=== PATIENT | male | born 1985 | race Two or more races ===

== ENCOUNTER 2020-06-05 01:53 | Inpatient (IN) | payer MEDICAID ==
[~2020-06-05] VITALS: Ht 177.8 cm; Wt 111.9 kg
[2020-06-05 02:42] LABS: Basophils # (auto) 0 10 ^3/uL (0-0.2); Basophils % (auto) 0.1 % (0.0-2.0); Eosinophils # (auto) 0 10 ^3/uL (0-0.8); Eosinophils % (auto) 0.2 % (0.0-7.0); Hematocrit 44.7 % (41.0-53.0); Hemoglobin 15.5 g/dL (13.5-17.5); Lymphocytes # (auto) 1.2 10 ^3/uL (0.4-5.4); Lymphocytes % (auto) 14.1 % (10.0-50.0); Mean Corpuscular Hemoglobin 28.5 pg (28.0-32.0); Mean Corpuscular Hgb Conc. 34.5 g/dL (32.0-36.0); Mean Corpuscular Volume 82.4 fL (80.0-100.0); Monocytes # (auto) 0.3 10 ^3/uL (0-1.3); Neutrophils % (auto) 81.6 % (37.0-80.0); Nucleated Red Blood Cells % 0.1 %; Platelet Count (auto) 323 10^3/uL (140-450); Red Blood Cells 5.43 10^6/uL (4.5-5.90); Red Cell Distribution Width 13.6 % (11.8-14.3); White Blood Cell 8.5 10^3/uL (4.4-10.8)
[2020-06-05 02:58] LABS: Alanine Aminotransferase 79 U/L (16-61); Albumin 2.9 g/dL (3.4-5.0); Anion Gap 8 (5-15); Aspartate Aminotransferase 50 U/L (15-37); BUN/Creatinine Ratio 14.4; Blood Urea Nitrogen 14 mg/dL (7-18); Calcium 8.3 mg/dL (8.5-10.1); Carbon Dioxide 27 mmol/L (21-32); Chloride 95 mmol/L (98-107); GFR African American 112 mL/min; GFR Non-African American 93 mL/min; Glucose 175 mg/dL (74-106); INR 1.02 (0.9-1.15); Partial Thromboplastin Time 27.3 sec (23.0-31.2); Sodium 130 mmol/L (136-145)
[2020-06-05 03:03] LABS: Alkaline Phosphatase 96 U/L (45-117); Bilirubin, Total 0.7 mg/dL (0.2-1.0); Total Protein 7.7 g/dL (6.4-8.2)
[2020-06-05] MEDS ORDERED: ERGOCALCIFEROL 50,000 UNIT(1.25MG) CAP PO SCH (07:00)
[2020-06-05] MEDS ORDERED: ASCORBIC ACID 500 MG TAB PO ONE (07:00)
[2020-06-05] MEDS ORDERED: cefTRIAXone 1GM/50ML D5W 50 ML IV ONE (07:00)
[2020-06-05] MEDS ORDERED: DOXYCYCLINE 100MG/250ML 250 ML IV ONE (07:00)
[2020-06-05] MEDS ORDERED: DexAMETHasone SOD PHOS 10MG/1ML VIAL INJ IV ONE (07:00)
[2020-06-05] MEDS ORDERED: ONDANSETRON HCL 4 MG/2 ML VIAL IV PRN (07:45)
[2020-06-05] MEDS ORDERED: HYDROcodone-ACET 5/325MG TAB PO PRN (07:45)
[2020-06-05] MEDS ORDERED: DOCUSATE SOD 100 MG CAP PO PRN (07:45)
[2020-06-05] MEDS ORDERED: NITROGLYCERIN 0.4 MG SL TAB SL PRN (07:45)
[2020-06-05] MEDS ORDERED: ACETAMINOPHEN 500 MG TAB PO PRN (07:45)
[2020-06-05] MEDS ORDERED: MORPHINE SULF INJ 2 MG/ML SYRINGE 1ML IV PRN (07:45)
[2020-06-05 09:20] VITALS: BP 114/74
[2020-06-05] MEDS: DOXYCYCLINE 100MG/250ML 250 ML IV SCH ×2 (10:00→22:00)
[2020-06-05] MEDS: MULTIPLE VITAMIN TAB PO SCH (10:00)
[2020-06-05] MEDS: DexAMETHasone SOD PHOS 10MG/1ML VIAL INJ IV SCH (10:00)
[2020-06-05] MEDS: ZINC SULFATE 220mg CAP or TAB PO SCH (10:00)
[2020-06-05] MEDS: ASCORBIC ACID 1,000 MG TAB PO SCH (10:00)
[2020-06-05] MEDS: ENOXAPARIN SOD 40 MG/0.4 ML SYRINGE SC SCH (10:00)
[2020-06-05] MEDS: CHOLECALCIFEROL (VITD3) 2,000 UNIT CAP PO SCH (10:00)
[2020-06-05] MEDS: BUDESONIDE (INHALATION) 180 MCG IH IN SCH ×3 (10:24→23:09)
[2020-06-05] MEDS ORDERED: AZIT250T9 PO (10:52)
[2020-06-05] MEDS ORDERED: DEXT1SYP6 PO (10:52)
[2020-06-05] MEDS ORDERED: HYDR12.56 PO (10:52)
[2020-06-05] MEDS ORDERED: AMLO5TAB15 PO (10:52)
[2020-06-05] MEDS ORDERED: ACET-1753 PO (10:52)
[2020-06-05] MEDS ORDERED: LISI40TA11 PO (10:52)
[2020-06-05] MEDS ORDERED: ATOR10TA52 PO (10:52)
[2020-06-05] MEDS ORDERED: ACET-6 PO (10:52)
[2020-06-05] MEDS ORDERED: METF-370 PO (10:52)
[2020-06-05] MEDS ORDERED: FUROSEMIDE 20 MG/2 ML VIAL IV ONE (11:15)
[2020-06-05] MEDS ORDERED: POTASSIUM CHL 10 Meq TABLET PO ONE (11:15)
[2020-06-05] MEDS ORDERED: DEXTROSE (50%) 50ML SYRG IV PRN (13:45)
[2020-06-05] MEDS: SODIUM CHLOR 0.9% PF (SALINE LOCK) 10ML VIAL/SYR IV SCH ×2 (14:00→22:00)
[2020-06-05] MEDS ORDERED: guaiFENesin-DM 100/10mg/5ml SYR PO PRN (14:00)
[2020-06-05] MEDS: ALBUTEROL SULF HFA 90MCG INH 200DOSE IN SCH ×3 (14:49→23:09)
[2020-06-05] MEDS: InsuLIN REG 1unit/0.01ml Soln (100units/ml) SC SCH ×2 (17:00→22:00)
[2020-06-05] MEDS ORDERED: REMDESIVIR 200 MG in NS 210ml LOADING DOSE ADULT IV ONE ×2 (17:00→18:30)
[2020-06-05] MEDS: ACCU-CHEK COMFORT CURVE STRIP VI SCH ×2 (17:00→22:00)
[2020-06-05 21:35] LABS: Urine Bacteria NONE SEEN /hpf (None Seen); Urine Blood Negative /uL (Negative); Urine Specific Gravity 1.011 (1.001-1.035); Urine WBC 1 /hpf (0 - 3)
[2020-06-06] MEDS: ALBUTEROL SULF HFA 90MCG INH 200DOSE IN SCH ×3 (06:00→22:00)
[2020-06-06] MEDS: SODIUM CHLOR 0.9% PF (SALINE LOCK) 10ML VIAL/SYR IV SCH ×2 (06:11→13:48)
[2020-06-06 06:39] VITALS: BP 123/70
[2020-06-06 06:56] VITALS: BP 118/66
[2020-06-06] MEDS: ACCU-CHEK COMFORT CURVE STRIP VI SCH ×4 (07:00→22:00)
[2020-06-06 07:09] LABS: Basophils # (auto) 0 10 ^3/uL (0-0.2); Basophils % (auto) 0.1 % (0.0-2.0); Eosinophils # (auto) 0 10 ^3/uL (0-0.8); Hematocrit 42.1 % (41.0-53.0); Hemoglobin 14.4 g/dL (13.5-17.5); Lymphocytes % (auto) 12.3 % (10.0-50.0); Mean Corpuscular Hemoglobin 28.3 pg (28.0-32.0); Mean Corpuscular Hgb Conc. 34.3 g/dL (32.0-36.0); Mean Corpuscular Volume 82.6 fL (80.0-100.0); Monocytes # (auto) 0.7 10 ^3/uL (0-1.3); Monocytes % (auto) 8.9 % (0.0-12.0); Neutrophils # (auto) 6.6 10 ^3/uL (1.6-8.6); Neutrophils % (auto) 78.7 % (37.0-80.0); Nucleated Red Blood Cells % 0.1 %; Platelet Count (auto) 422 10^3/uL (140-450); Red Cell Distribution Width 13.3 % (11.8-14.3); White Blood Cell 8.4 10^3/uL (4.4-10.8)
[2020-06-06 07:17] LABS: Potassium 3.9 mmol/L (3.5-5.1)
[2020-06-06 07:22] LABS: Albumin 2.7 g/dL (3.4-5.0); BUN/Creatinine Ratio 25.3; Calcium 8.4 mg/dL (8.5-10.1)
[2020-06-06 07:25] LABS: Bilirubin, Total 0.5 mg/dL (0.2-1.0); Total Protein 7.2 g/dL (6.4-8.2)
[2020-06-06] MEDS: BUDESONIDE (INHALATION) 180 MCG IH IN SCH ×2 (07:44→22:00)
[2020-06-06] MEDS: InsuLIN REG 1unit/0.01ml Soln (100units/ml) SC SCH ×4 (08:00→22:33)
[2020-06-06] MEDS: CHOLECALCIFEROL (VITD3) 2,000 UNIT CAP PO SCH ×2 (10:00→10:26)
[2020-06-06] MEDS: DexAMETHasone SOD PHOS 10MG/1ML VIAL INJ IV SCH (10:25)
[2020-06-06] MEDS: FUROSEMIDE 20 MG/2 ML VIAL IV SCH (10:25)
[2020-06-06] MEDS: DOXYCYCLINE 100MG/250ML 250 ML IV SCH ×2 (10:26→22:31)
[2020-06-06] MEDS: ZINC SULFATE 220mg CAP or TAB PO SCH (10:26)
[2020-06-06] MEDS: ASCORBIC ACID 1,000 MG TAB PO SCH (10:26)
[2020-06-06] MEDS: MULTIPLE VITAMIN TAB PO SCH (10:26)
[2020-06-06] MEDS: ENOXAPARIN SOD 40 MG/0.4 ML SYRINGE SC SCH (10:26)
[2020-06-06] MEDS: POTASSIUM CHL 10 Meq TABLET PO SCH (10:26)
[2020-06-06] MEDS ORDERED: IOHEXOL 350 MG/ML 100ML IJ ONE (15:49)
[2020-06-06] MEDS: REMDESIVIR 100mg in NS 230ml DAILYx4DAYS (NO VENT) IV SCH (16:42)
[2020-06-06 22:00] VITALS: BP 120/78
[2020-06-06] MEDS: ENOXAPARIN SOD 100 MG/1 ML SYRINGE SC SCH (22:31)
[2020-06-07] VITALS (9 sets, daily range): BP systolic 120–154; BP diastolic 72–87
[2020-06-07] MEDS: SODIUM CHLOR 0.9% PF (SALINE LOCK) 10ML VIAL/SYR IV SCH ×4 (00:28→22:51)
[2020-06-07] MEDS: ACCU-CHEK COMFORT CURVE STRIP VI SCH ×4 (06:24→22:00)
[2020-06-07] MEDS: InsuLIN REG 1unit/0.01ml Soln (100units/ml) SC SCH ×4 (06:30→22:49)
[2020-06-07] MEDS: ALBUTEROL SULF HFA 90MCG INH 200DOSE IN SCH ×3 (07:00→21:27)
[2020-06-07] MEDS: BUDESONIDE (INHALATION) 180 MCG IH IN SCH ×2 (07:00→21:27)
[2020-06-07 08:13] LABS: Albumin 2.9 g/dL (3.4-5.0); BUN/Creatinine Ratio 25.5; Calcium 8.4 mg/dL (8.5-10.1); Magnesium 2.8 mg/dL (1.6-2.6); Total Protein 7.6 g/dL (6.4-8.2)
[2020-06-07 08:16] LABS: Bilirubin, Total 0.5 mg/dL (0.2-1.0)
[2020-06-07] MEDS: DOXYCYCLINE 100MG/250ML 250 ML IV SCH ×2 (09:11→22:51)
[2020-06-07] MEDS: DexAMETHasone SOD PHOS 10MG/1ML VIAL INJ IV SCH (09:11)
[2020-06-07] MEDS: FUROSEMIDE 20 MG/2 ML VIAL IV SCH (09:11)
[2020-06-07] MEDS: MULTIPLE VITAMIN TAB PO SCH (09:12)
[2020-06-07] MEDS: ZINC SULFATE 220mg CAP or TAB PO SCH (09:12)
[2020-06-07] MEDS: ENOXAPARIN SOD 100 MG/1 ML SYRINGE SC SCH ×2 (09:12→22:47)
[2020-06-07] MEDS: CHOLECALCIFEROL (VITD3) 2,000 UNIT CAP PO SCH (09:12)
[2020-06-07] MEDS: ASCORBIC ACID 1,000 MG TAB PO SCH (09:12)
[2020-06-07] MEDS: POTASSIUM CHL 10 Meq TABLET PO SCH (09:12)
[2020-06-07] MEDS: REMDESIVIR 100mg in NS 230ml DAILYx4DAYS (NO VENT) IV SCH (17:31)
[2020-06-08 05:00] VITALS: BP 120/75
[2020-06-08] MEDS: SODIUM CHLOR 0.9% PF (SALINE LOCK) 10ML VIAL/SYR IV SCH ×3 (06:51→22:40)
[2020-06-08] MEDS: InsuLIN REG 1unit/0.01ml Soln (100units/ml) SC SCH ×4 (06:51→22:44)
[2020-06-08] MEDS: ACCU-CHEK COMFORT CURVE STRIP VI SCH ×4 (06:51→22:40)
[2020-06-08] MEDS: ALBUTEROL SULF HFA 90MCG INH 200DOSE IN SCH ×3 (07:00→21:18)
[2020-06-08] MEDS: BUDESONIDE (INHALATION) 180 MCG IH IN SCH ×2 (07:00→21:18)
[2020-06-08 07:50] LABS: Albumin 2.8 g/dL (3.4-5.0); Calcium 8.3 mg/dL (8.5-10.1)
[2020-06-08 07:55] LABS: BUN/Creatinine Ratio 27.1; Bilirubin, Total 0.5 mg/dL (0.2-1.0); Total Protein 6.8 g/dL (6.4-8.2)
[2020-06-08 08:00] VITALS: BP 128/83
[2020-06-08 08:49] VITALS: BP 120/75
[2020-06-08] MEDS: DexAMETHasone SOD PHOS 10MG/1ML VIAL INJ IV SCH (10:13)
[2020-06-08] MEDS: ENOXAPARIN SOD 100 MG/1 ML SYRINGE SC SCH ×2 (10:14→22:40)
[2020-06-08] MEDS: FUROSEMIDE 20 MG/2 ML VIAL IV SCH (10:14)
[2020-06-08] MEDS: DOXYCYCLINE 100MG/250ML 250 ML IV SCH ×2 (10:15→22:40)
[2020-06-08] MEDS: ZINC SULFATE 220mg CAP or TAB PO SCH (10:15)
[2020-06-08] MEDS: ASCORBIC ACID 1,000 MG TAB PO SCH (10:15)
[2020-06-08] MEDS: MULTIPLE VITAMIN TAB PO SCH (10:15)
[2020-06-08] MEDS: POTASSIUM CHL 10 Meq TABLET PO SCH (10:15)
[2020-06-08] MEDS: CHOLECALCIFEROL (VITD3) 2,000 UNIT CAP PO SCH (10:15)
[2020-06-08 12:00] VITALS: BP 126/83
[2020-06-08] MEDS: REMDESIVIR 100mg in NS 230ml DAILYx4DAYS (NO VENT) IV SCH (16:58)
[2020-06-08 17:00] VITALS: BP 125/81
[2020-06-08 22:00] VITALS: BP 134/88
[2020-06-09 05:00] VITALS: BP 128/86
[2020-06-09] MEDS: SODIUM CHLOR 0.9% PF (SALINE LOCK) 10ML VIAL/SYR IV SCH ×3 (06:07→22:05)
[2020-06-09] MEDS: ACCU-CHEK COMFORT CURVE STRIP VI SCH ×4 (06:18→22:06)
[2020-06-09] MEDS: InsuLIN REG 1unit/0.01ml Soln (100units/ml) SC SCH ×4 (06:47→23:07)
[2020-06-09] MEDS: ALBUTEROL SULF HFA 90MCG INH 200DOSE IN SCH ×3 (07:20→22:27)
[2020-06-09] MEDS: BUDESONIDE (INHALATION) 180 MCG IH IN SCH ×2 (07:21→22:27)
[2020-06-09 07:34] LABS: Hematocrit 45.6 % (41.0-53.0); Hemoglobin 15.5 g/dL (13.5-17.5); Mean Corpuscular Hemoglobin 28.5 pg (28.0-32.0); Mean Corpuscular Hgb Conc. 34.1 g/dL (32.0-36.0); Mean Corpuscular Volume 83.6 fL (80.0-100.0); Platelet Count (auto) 559 10^3/uL (140-450); Red Blood Cells 5.45 10^6/uL (4.5-5.90); Red Cell Distribution Width 13.6 % (11.8-14.3); White Blood Cell 11.3 10^3/uL (4.4-10.8)
[2020-06-09 07:53] LABS: Basophils % (manual) 0 (0.0-2.0); Blast Cells 0; Myelocytes % 0; Promyelocytes % 0; Reactive Lymphocytes 0
[2020-06-09 07:57] LABS: Albumin 2.8 g/dL (3.4-5.0); BUN/Creatinine Ratio 25.6; Bilirubin, Total 0.5 mg/dL (0.2-1.0); CRP High Sensitivity 0.43 mg/dL (< 0.3); Calcium 8.6 mg/dL (8.5-10.1); Potassium 4.2 mmol/L (3.5-5.1); Total Protein 7.2 g/dL (6.4-8.2)
[2020-06-09 09:00] VITALS: BP 124/80
[2020-06-09] MEDS: DexAMETHasone SOD PHOS 10MG/1ML VIAL INJ IV SCH (11:07)
[2020-06-09] MEDS: POTASSIUM CHL 10 Meq TABLET PO SCH (11:07)
[2020-06-09] MEDS: ZINC SULFATE 220mg CAP or TAB PO SCH (11:07)
[2020-06-09] MEDS: DOXYCYCLINE 100MG/250ML 250 ML IV SCH (11:07)
[2020-06-09] MEDS: CHOLECALCIFEROL (VITD3) 2,000 UNIT CAP PO SCH (11:08)
[2020-06-09] MEDS: FUROSEMIDE 20 MG/2 ML VIAL IV SCH (11:08)
[2020-06-09] MEDS: ASCORBIC ACID 1,000 MG TAB PO SCH (11:08)
[2020-06-09] MEDS: MULTIPLE VITAMIN TAB PO SCH (11:08)
[2020-06-09] MEDS: ENOXAPARIN SOD 100 MG/1 ML SYRINGE SC SCH ×2 (11:08→22:05)
[2020-06-09 11:41] LABS: Band Neutrophils % (manual) 6; Eosinophils % (manual) 1 (0-7); Lymphocytes % (manual) 17 (10.0-50.0); Metamyelocytes % 4; Monocytes % (manual) 1 (0-12)
[2020-06-09 12:31] VITALS: BP 139/76
[2020-06-09 17:00] VITALS: BP 126/79
[2020-06-09] MEDS: REMDESIVIR 100mg in NS 230ml DAILYx4DAYS (NO VENT) IV SCH (20:27)
[2020-06-09 22:00] VITALS: BP 110/78
[2020-06-09] MEDS: DOXYCYCLINE 100 MG TAB/CAP PO SCH (22:05)
[2020-06-10 05:00] VITALS: BP 124/89
[2020-06-10] MEDS: SODIUM CHLOR 0.9% PF (SALINE LOCK) 10ML VIAL/SYR IV SCH ×2 (06:18→14:35)
[2020-06-10] MEDS: InsuLIN REG 1unit/0.01ml Soln (100units/ml) SC SCH ×3 (06:37→18:28)
[2020-06-10] MEDS: ACCU-CHEK COMFORT CURVE STRIP VI SCH ×3 (06:37→18:10)
[2020-06-10] MEDS: ALBUTEROL SULF HFA 90MCG INH 200DOSE IN SCH ×2 (07:23→13:49)
[2020-06-10] MEDS: BUDESONIDE (INHALATION) 180 MCG IH IN SCH (07:23)
[2020-06-10 09:00] VITALS: BP 123/80
[2020-06-10] MEDS ORDERED: LISINOPRIL 20 MG TAB PO SCH (10:00)
[2020-06-10] MEDS ORDERED: metFORMIN HYDROCHLORIDE 500 MG TAB PO SCH (10:00)
[2020-06-10] MEDS: FUROSEMIDE 20 MG/2 ML VIAL IV SCH (10:03)
[2020-06-10] MEDS: DexAMETHasone SOD PHOS 10MG/1ML VIAL INJ IV SCH (10:03)
[2020-06-10] MEDS: ZINC SULFATE 220mg CAP or TAB PO SCH (10:03)
[2020-06-10] MEDS: POTASSIUM CHL 10 Meq TABLET PO SCH (10:04)
[2020-06-10] MEDS: DOXYCYCLINE 100 MG TAB/CAP PO SCH (10:04)
[2020-06-10] MEDS: ENOXAPARIN SOD 100 MG/1 ML SYRINGE SC SCH (10:04)
[2020-06-10] MEDS: ASCORBIC ACID 1,000 MG TAB PO SCH (10:04)
[2020-06-10] MEDS: MULTIPLE VITAMIN TAB PO SCH (10:04)
[2020-06-10] MEDS: CHOLECALCIFEROL (VITD3) 2,000 UNIT CAP PO SCH (10:04)
[2020-06-10 13:00] VITALS: BP 127/88
[2020-06-10] MEDS ORDERED: ASPI81CH43 PO (13:07)
[2020-06-10] MEDS ORDERED: ALBUAER3 IN (13:07)
[2020-06-10] MEDS ORDERED: CHOL1CAP47 PO (13:07)
[2020-06-10] MEDS ORDERED: METH4PAK PO (13:07)
[2020-06-10] MEDS ORDERED: PANT40TA2 PO (13:07)
[2020-06-10] MEDS ORDERED: ZINC220T6 PO (13:07)
[2020-06-10] MEDS ORDERED: ASCO10003 PO (13:07)
[2020-06-10] MEDS ORDERED: DOX100T PO (13:07)
[2020-06-10 17:00] VITALS: BP 129/88
[2020-06-10 17:29] VITALS: BP 129/88
[2020-06-11] MEDS ORDERED: ENOXAPARIN SOD 40 MG/0.4 ML SYRINGE SC SCH (10:00)
== END 2020-06-10 20:51 | disposition home or self-care (01) | DRG 720 ==
LOC: ER 01:55 → TELE 01:56 → TELE-E-ADS 06-06 19:44 → TELE-CENTR 06-09 17:29
PROVIDERS: ADMIT Nurse Practitioner Family; ATTEND Internal Medicine
PROC: XW033E5 Introduction of Remdesivir Anti-infective into Peripheral Vein, Percutaneous Approach, New Technology Group 5 (ICD-10-PCS; 2020-06-05)
PROC: XW13325 Transfusion of Convalescent Plasma (Nonautologous) into Peripheral Vein, Percutaneous Approach, New Technology Group 5 (ICD-10-PCS; principal; 2020-06-06)
DX: A41.89 Other specified sepsis (principal); U07.1 COVID-19; J12.89 Other viral pneumonia; J96.01 Acute respiratory failure with hypoxia; E44.0 Moderate protein-calorie malnutrition; E87.1 Hypo-osmolality and hyponatremia; I10 Essential (primary) hypertension; R74.01 Elevation of levels of liver transaminase levels; E66.01 Morbid (severe) obesity due to excess calories; R79.89 Other specified abnormal findings of blood chemistry; E11.65 Type 2 diabetes mellitus with hyperglycemia; Z68.35 Body mass index [BMI] 35.0-35.9, adult; Z79.899 Other long term (current) drug therapy
CPT/HCPCS: 36415; 36430; 71045; 71275; 80053; 80061; 81001; 82306; 82728; 82962; 83036; 83605; 83615; 83735; 83880; 84443; 84484; 85007; 85025; 85027; 85379; 85610; 85730; 86141; 86850; 86900; 86901; 87040; 87426; 93005; 93970; 94640; 96365; 96367; 96375; 99291; G0378; J0696; J1100; J1815; J3490